=== PATIENT | female | born 1980 | race Caucasian/White ===

== ENCOUNTER 2020-03-01 21:20 | Emergency (ER) | payer OTHER, SELFPAY ==
[2020-03-01 21:44] VITALS: BP 95/64; PULSE 100; RESP 20; TEMP 37.6; O2SAT 99
[2020-03-01] MEDS: KETOROLAC 30 MG/ML VIAL (*BKC) IM (22:24)
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
[2020-03-01 22:58] VITALS: BP 109/88; PULSE 92; RESP 20; O2SAT 99
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
== END 2020-03-01 22:59 | disposition home or self-care (01) ==
PROVIDERS: Emergency Provider Family Medicine
DX: T14.8XXA Other injury of unspecified body region, initial encounter (principal); V89.2XXA Person injured in unspecified motor-vehicle accident, traffic, initial encounter
CPT/HCPCS: 96372; 99283; J1885